=== PATIENT | female | born 1965 ===

== ENCOUNTER 2018-02-12 16:05 | Emergency (ER) | payer MEDICAID, OTHER ==
--- NOTE | 2018-02-12 16:50 | ED PDOC ---
HPI: Back Time Seen by Provider: 02/12/18 16:23 Chief Complaint (Nursing): Back Pain Chief Complaint (Provider): Right Flank Pain History Per: Patient History/Exam Limitations: no limitations Onset/Duration Of Symptoms: Days (1x), Worse Since Current Symptoms Are (Timing): Constant Quality Of Discomfort: Sharp Exacerbating Factor(s): Movement Additional Complaint(s): 52 year old female with a history of back pain presents to the ED for an evaluation of right flank pain onset yesterday. Patient states the pain is int ermittent and today afternoon it worsened becoming sharp and uncomfortable. She states the pain is worse with movement and she visited her orthopedic doctor yesterday who prescribed non-steriod medication without any relief. Patient takes Ibuprofen and the back pain goes away. Otherwise, patient denies fever, vomiting, urinary problems, leg problems, numbness, weakness, diarrhea, constipation or rash. PMD: non [facility] Provider Past Medical History Reviewed: Historical Data, Nursing Documentation, Vital Signs Vital Signs: Last Vital Signs Temp 98 F 02/12/18 16:15 Pulse 80 02/12/18 16:15 Resp 18 02/12/18 16:15 BP 127/85 02/12/18 16:15 Pulse Ox 99 02/12/18 16:15 - Medical History PMH: Back Problems, Hypothyroidism - Surgical History Surgical History: Other surgeries: Thyroid surgery - Family History Family History: States: Unknown Family Hx - Social History Current smoker - smoking cessation education provided: No Alcohol: None Drugs: Denies - Immunization History Hx Tetanus Toxoid Vaccination: No Hx Influenza Vaccination: No Hx Pneumococcal Vaccination: No - Home Medications Home Medications: Ambulatory Orders Medication Instructions Recorded Levothyroxine [Synthroid] 100 mcg PO DAILY 12/31/16 Naproxen [Naprosyn] 1 tab PO BID PRN #20 tab 01/30/18 Cyclobenzaprine [Cyclobenzaprine 10 mg PO TID #15 tab 02/12/18 HCl] - Allergies Allergies/Adverse Reactions: Allergies Allergy/AdvReac Type Severity Reaction Status Date / Time fruits Allergy Unknown ITCHING Uncoded 02/12/18 16:14 Review of Systems ROS Statement: Except As Marked, All Systems Reviewed And Found Negative Constitutional: Negative for: Fever, Chills Gastrointestinal: Negative for: Nausea, Vomiting, Abdominal Pain, Diarrhea, Constipation Genitourinary Female: Negative for: Dysuria, Frequency, Incontinence, Hematuria Musculoskeletal: Positive for: Back Pain. Negative for: Leg Pain Neurological: Negative for: Weakness, Numbness Physical Exam - Reviewed Nursing Documentation Reviewed: Yes Vital Signs Reviewed: Yes - Physical Exam Appears: Positive for: Non-toxic, No Acute Distress Head Exam: Positive for: ATRAUMATIC, NORMAL INSPECTION, NORMOCEPHALIC Skin: Positive for: Normal Color, Warm, Dry. Negative for: Rash Eye Exam: Positive for: EOMI, Normal appearance, PERRL ENT: Positive for: Normal ENT Inspection Neck: Positive for: Normal, Painless ROM, Supple. Negative for: Decreased ROM Cardiovascular/Chest: Positive for: Regular Rate, Rhythm. Negative for: Murmur Respiratory: Positive for: Normal Breath Sounds. Negative for: Decreased Breath Sounds, Wheezing, Respiratory Distress Gastrointestinal/Abdominal: Positive for: Normal Exam, Soft. Negative for: Tenderness, Guarding, Rebound Back: Positive for: Other (tenderness on the right midback and moving positions when uncomfortable). Negative for: L CVA Tenderness, R CVA Tenderness Extremity: Positive for: Normal ROM. Negative for: Tenderness, Pedal Edema, Deformity Neurologic/Psych: Positive for: Alert, Oriented (x3). Negative for: Amanda r/Sensory Deficits - Laboratory Results Result Diagrams: 02/12/18 16:56 02/12/18 16:56 - ECG O2 Sat by Pulse Oximetry: 99 (RA) Pulse Ox Interpretation: Normal - Progress Re-evaluation Time: 18:30 Condition: Re-examined, Improved Medical Decision Making Medical Decision Making: Time: 1636 Initial Impression: right flank pain Differential Diagnosis: nephrolithiasis, muscle spasm or musculoskeletal pain Initial Plan: Abdomen & Pelvis CT BMP Ed Urine CBC w/ Differential Flexeril 10mg Toradol 30mg Urinalysis Reevaluation Time: 1733 CT RESULTS FINDINGS: There is limited evaluation of the solid organs without the administration of IV contrast. LOWER THORAX: No visible consolidation, pleural effusion, or pneumothorax. LIVER: Unremarkable unenhanced appearance. GALLBLADDER AND BILE DUCTS: Unremarkable unenhanced appearance. PANCREAS: Unremarkable unenhanced appearance. SPLEEN: 1.5 cm probable splenule. Otherwise unremarkable unenhanced appearance. ADRENALS: Unremarkable unenhanced appearance. KIDNEYS AND URETERS: No hydronephrosis or obstructing renal calculus. BLADDER: The urinary bladder appears unremarkable. REPRODUCTIVE: Uterus is not identified presumably due to hysterectomy. APPENDIX: The appendix appears within normal limits of caliber. No secondary signs of acute appendicitis. BOWEL: The stomach is nondistended. Lack of oral contrast limits evaluation for bowel pathology. The bowel loops appear within normal limits of caliber without evidence of intestinal obstruction. Short segment of wall thickening/luminal narrowing the rectosigmoi d junction measuring approximately 3.1 cm in length; while this may be exaggerated by under distension, malignant neoplasm must be excluded. Recommend correlation with sigmoidoscopy/colonoscopy. PERITONEUM: No significant free fluid. No definite free air. LYMPH NODES: No bulky lymphadenopathy identified. VASCULATURE: No aortic atherosclerotic calcifications identified. No aortic aneurysm. BONES: Degenerative changes. OTHER FINDINGS: None. IMPRESSION: Short segment of wall thickening/luminal narrowing the rectosigmoid junction measuring approximately 3.1 cm in length; while this may be exaggerated by under distension, malignant neoplasm must be excluded. Recommend correlation with sigmoidoscopy/colonoscopy. Scribe Attestation: Documented by Guerita Bajwa, acting as a scribe for Felicita Ray MD Provider Scribe Attestation: All medical record entries made by the Scribe were at my direction and personally dictated by me. I have reviewed the chart and agree that the record accurately reflects my personal performance of the history, physical exam, medical decision making, and the department course for this patient. I have also personally directed, reviewed, and agree with the discharge instructions and disposition. Disposition - Clinical Impression Clinical Impression: Flank pain, Abnormal CT scan, colon - Patient ED Disposition Is Patient to be Admitted: No Doctor Will See Patient In The: Office Counseled Patient/Family Regarding: Studies Performed, Diagnosis, Need For Followup - Disposition Referrals: Wilmar Hernandez MD [Staff Provider] - Disposition: Routine/Home Disposition Time: 18:34 Condition: GOOD Additional Instructions: DAILY STILES, thank you for letting us take care of you today. Your provider was Felicita Ray MD and you were treated for RT ABD PAIN. The emergency medical care you received today was directed at your acute symptoms. If you were prescribed any medication, please fill it and take as directed. It may take several days for your symptoms to resolve. Return to the Emergency Department if your symptoms worsen, do not improve, or if you have any other problems. Please contact your doctor or call one of the physicians/clinics you have been referred to that are listed on the Patient Visit Information form that is included in your discharge packet. Bring any paperwork you were given at discharge with you along with any medications you are taking to your follow up visit. Our treatment cannot replace ongoing medical care by a primary care provider outside of the emergency department. Thank you for allowing the [facility] team to be part of your care today. If you had an X-Ray or CT scan: A Radiologist will review the ED reading if any change in treatment is needed we will contact you. If you had a blood, urine, or wound culture: It will take several days for the results, if any change in treatment is needed we will contact you. If you had an STI test: It will take 48 hours for the results. Please call after 1 week if you have not heard back. Prescriptions: Cyclobenzaprine [Cyclobenzaprine HCl] 10 mg PO TID #15 tab Instructions: Flank Pain (DC), Colon and Rectal Cancer Screening Print Language: KYRGYZ
[2018-02-12 17:06] LABS: BASO # 0.1 K/uL (0.0-0.2); BASO % 0.9 % (0.0-2.0); EOS # 0.2 K/uL (0.0-0.7); EOS % 2.9 % (0.0-4.0); HEMOGLOBIN 12.4 g/dL (12.0-16.0); LYMPH # 1.4 K/uL (1.0-4.3); LYMPH % 19.6 % (20.0-40.0); MEAN CELL VOLUME 90.1 fl (81.0-99.0); MEAN CORPUSCULAR HEMOGLOBIN 29.9 pg (27.0-31.0); MEAN CORPUSCULAR HGB CONC 33.1 g/dL (33.0-37.0); MEAN PLATELET VOLUME 7.7 fl (7.2-11.7); MONO # 0.5 K/uL (0.0-0.8); MONO % 6.8 % (0.0-10.0); NEUT # 5.1 K/uL (1.8-7.0); NEUT % 69.8 % (50.0-75.0); NRBC % 0.1 % (0.0-0.0); RBC 4.17 Mil/uL (3.80-5.20); RED CELL DISTRIBUTION WIDTH 14.2 % (11.5-14.5); WHITE BLOOD COUNT 7.3 K/uL (4.8-10.8)
[2018-02-12 17:09] LABS: BLOOD UREA NITROGEN 17 mg/dl (7-17); GFR NON-AFRICAN AMERICAN > 60
[2018-02-12 17:19] LABS: SQUAMOUS EPITHIAL 3 /hpf (0-5); URINE BILIRUBIN NEGATIVE (NEGATIVE); URINE BLOOD NEGATIVE (NEGATIVE); URINE CLARITY CLEAR (Clear); URINE COLOR YELLOW (YELLOW); URINE GLUCOSE (UA) NEG (NEGATIVE); URINE LEUKOCYTE ESTERASE NEG Leu/uL (Negative); URINE PROTEIN NEGATIVE (NEGATIVE); URINE UROBILINOGEN 0.2-1.0 mg/dL (0.2-1.0)
--- NOTE | 2018-02-12 17:36 | CT ---
PROCEDURE: CT Abdomen and Pelvis without Oral or IV contrast. HISTORY: right flank pain COMPARISON: None available. TECHNIQUE: Contiguous axial images of the abdomen and pelvis. No oral or IV contrast administered. Coronal and Sagittal reformats generated and reviewed. Radiation dose: Total exam DLP = 787.59 mGy-cm. This CT exam was performed using one or more of the following dose reduction techniques: Automated exposure control, adjustment of the mA and/or kV according to patient size, and/or use of iterative reconstruction technique. FINDINGS: There is limited evaluation of the solid organs without the administration of IV contrast. LOWER THORAX: No visible consolidation, pleural effusion, or pneumothorax. LIVER: Unremarkable unenhanced appearance. GALLBLADDER AND BILE DUCTS: Unremarkable unenhanced appearance. PANCREAS: Unremarkable unenhanced appearance. SPLEEN: 1.5 cm probable splenule. Otherwise unremarkable unenhanced appearance. ADRENALS: Unremarkable unenhanced appearance. KIDNEYS AND URETERS: No hydronephrosis or obstructing renal calculus. BLADDER: The urinary bladder appears unremarkable. REPRODUCTIVE: Uterus is not identified presumably due to hysterectomy. APPENDIX: The appendix appears within normal limits of caliber. No secondary signs of acute appendicitis. BOWEL: The stomach is nondistended. Lack of oral contrast limits evaluation for bowel pathology. The bowel loops appear within normal limits of caliber without evidence of intestinal obstruction. Short segment of wall thickening/luminal narrowing the rectosigmoid junction measuring approximately 3.1 cm in length; while this may be exaggerated by under distension, malignant neoplasm must be excluded. Recommend correlation with sigmoidoscopy/colonoscopy. PERITONEUM: No significant free fluid. No definite free air. LYMPH NODES: No bulky lymphadenopathy identified. VASCULATURE: No aortic atherosclerotic calcifications identified. No aortic aneurysm. BONES: Degenerative changes. OTHER FINDINGS: None. IMPRESSION: Short segment of wall thickening/luminal narrowing the rectosigmoid junction measuring approximately 3.1 cm in length; while this may be exaggerated by under distension, malignant neoplasm must be excluded. Recommend correlation with sigmoidoscopy/colonoscopy.
[2018-02-12 18:46] VITALS: BP 126/78; PULSE 78; RESP 19; TEMP 97.5; O2SAT 98
== END 2018-02-12 18:48 | disposition home or self-care (01) ==
LOC: H.ER 16:05
DX: R10.9 Unspecified abdominal pain (principal); E03.9 Hypothyroidism, unspecified; R94.8 Abnormal results of function studies of other organs and systems
CPT/HCPCS: 74176; 80048; 81003; 85025; 96374; 99282; J1885

== ENCOUNTER 2018-05-27 16:44 | Emergency (ER) | payer MEDICAID, OTHER ==
[2018-05-27 17:01] VITALS: O2SAT 99
[2018-05-27] MEDS ORDERED: Sodium Chloride 0.9% 500 ML IV STA (17:34)
[2018-05-27 17:50] LABS: BASO % 0.5 % (0.0-2.0); EOS # 0.1 K/uL (0.0-0.7); EOS % 2.1 % (0.0-4.0); HEMOGLOBIN 12.8 g/dL (12.0-16.0); LYMPH # 1.2 K/uL (1.0-4.3); LYMPH % 24.4 % (20.0-40.0); MEAN CELL VOLUME 87.7 fl (81.0-99.0); MEAN CORPUSCULAR HEMOGLOBIN 29.7 pg (27.0-31.0); MEAN CORPUSCULAR HGB CONC 33.8 g/dL (33.0-37.0); MEAN PLATELET VOLUME 7.7 fl (7.2-11.7); MONO # 0.9 K/uL (0.0-0.8); MONO % 17.1 % (0.0-10.0); NEUT # 2.9 K/uL (1.8-7.0); NEUT % 55.9 % (50.0-75.0); NRBC % 0.1 % (0.0-0.0); RBC 4.31 Mil/uL (3.80-5.20); RED CELL DISTRIBUTION WIDTH 13.7 % (11.5-14.5); WHITE BLOOD COUNT 5.1 K/uL (4.8-10.8)
[2018-05-27 17:58] LABS: ALBUMIN 4.3 g/dL (3.5-5.0); ALT/SGPT 32 U/L (9-52); AST/SGOT 31 U/L (14-36); BLOOD UREA NITROGEN 18 mg/dl (7-17); CALCIUM 9.6 mg/dL (8.4-10.2); GFR NON-AFRICAN AMERICAN > 60
--- NOTE | 2018-05-27 17:58 | CT ---
Date of service: 05/27/2018 PROCEDURE: CT HEAD WITHOUT CONTRAST. HISTORY: severe headache COMPARISON: None available. TECHNIQUE: Axial computed tomography images were obtained through the head/brain without intravenous contrast. Radiation dose: Total exam DLP = 745.74 mGy-cm. This CT exam was performed using one or more of the following dose reduction techniques: Automated exposure control, adjustment of the mA and/or kV according to patient size, and/or use of iterative reconstruction technique. FINDINGS: HEMORRHAGE: No intracranial hemorrhage. BRAIN: Cabrera-white matter differentiation is preserved. There is no mass, mass effect or abnormal extra-axial fluid collection. There is no territorial infarction. The midline sagittal structures are normal. VENTRICLES: The ventricles are normal in size, shape and configuration. CALVARIUM: There is no calvarial fracture or extracranial soft tissue swelling. PARANASAL SINUSES: There fluid in the left maxillary sinus and ethmoid air cells with aerosolized secretions. The remaining included paranasal sinuses are clear. MASTOID AIR CELLS: Predominantly clear. OTHER FINDINGS: None. IMPRESSION: No acute intracranial abnormality. Fluid with aerosolized secretions in the left maxillary sinus and ethmoid air cells may represent acute sinusitis in the appropriate clinical setting. Clinical follow-up is advised.
[2018-05-27] MEDS ORDERED: Potassium Chloride 20 mEq ER Tab PO STA (18:45)
[2018-05-27] MEDS ORDERED: Potassium Chloride 20 mEq ER Tab PO ONE (18:52)
--- NOTE | 2018-05-27 19:44 | ED PDOC ---
HPI: Headache Time Seen by Provider: 05/27/18 17:21 Chief Complaint (Nursing): Headache Chief Complaint (Provider): HEADACHE History Per: Patient History/Exam Limitations: no limitations Onset/Duration Of Symptoms: Days Current Symptoms Are (Timing): Still Present Severity: Moderate Pain Scale Rating Of: 7 Quality: Aching, Pressure Preceeding Symptoms: None Associated Symptoms: denies: Photophobia, Blurred Vision, Nausea, Vomiting, Extremity Weakness Additional History Per: Patient Additional Complaint(s): 52 Y/O FEMALE WITH A HX OF HTN, PRESENTS TO THE ED C/O FRONTAL HEADACHE, NASAL CONGESTION, UPPER BACK PAIN FOR TWO DAYS. PT REPORTS SHE WOKE UP WITH HEADACHE TWO DAYS AGO AND HAS BEEN TAKING OTC MEDS WITH NO RELIEF. SHE ALSO STATES SHE HAS NEVER FELT THIS TYPE OF HEADACHE IN THE PAST. SHE DENIES SOB, CP, FEVER, COUGH. Past Medical History Reviewed: Historical Data, Nursing Documentation, Vital Signs Vital Signs: Last Vital Signs Temp 98.3 F 05/27/18 16:58 Pulse 74 05/27/18 16:58 Resp 16 05/27/18 16:58 BP 171/90 H 05/27/18 16:58 Pulse Ox 99 05/27/18 16:58 - Medical History PMH: Back Problems, Hypothyroidism - Surgical History Surgical History: - Family History Family History: States: Unknown Family Hx - Living Arrangements Living Arrangements: With Family - Social History Alcohol: None Drugs: Denies - Immunization History Hx Tetanus Toxoid Vaccination: No Hx Influenza Vaccination: No Hx Pneumococcal Vaccination: No - Home Medications Home Medications: Ambulatory Orders Medication Instructions Recorded Levothyroxine [Synthroid] 100 mcg PO DAILY 12/31/16 Naproxen [Naprosyn] 1 tab PO BID PRN #20 tab 01/30/18 Cyclobenzaprine [Cyclobenzaprine 10 mg PO TID #15 tab 02/12/18 HCl] Fluticasone Propionate [Flonase 1 - 2 spry NS BID PRN #1 bottle 05/27/18 Allergy Relief] - Allergies Allergies/Adverse Reactions: Allergies Allergy/AdvReac Type Severity Reaction Status Date / Time banana Allergy ITCHING Verified 05/27/18 16:58 fruits Allergy Unknown ITCHING Uncoded 05/27/18 16:58 Review of Systems ROS Statement: Except As Marked, All Systems Reviewed And Found Negative Constitutional: Negative for: Fever, Chills, Weakness Eyes: Negative for: Vision Change ENT: Negative for: Throat Pain, Throat Swelling Cardiovascular: Negative for: Chest Pain, Palpitations Respiratory: Negative for: Cough, Shortness of Breath, SOB with Exertion, Wheezing Gastrointestinal: Negative for: Nausea, Vomiting, Abdominal Pain Musculoskeletal: Positive for: Neck Pain, Back Pain Skin: Negative for: Rash Neurological: Negative for: Weakness Physical Exam - Reviewed Nursing Documentation Reviewed: Yes Vital Signs Reviewed: Yes - Physical Exam Appears: Positive for: Well, Non-toxic, No Acute Distress Head Exam: Positive for: ATRAUMATIC, NORMAL INSPECTION, NORMOCEPHALIC Skin: Positive for: Normal Color, Warm, DRY Eye Exam: Positive for: Normal appearance, EOMI, PERRL, Periorbital tenderness. Negative for: Nystagmus, Periorbital swelling, Conjunctival injection ENT: Positive for: Normal ENT Inspection, TM Is/Are (INTACT). Negative for: Pharyngeal Erythema Neck: Positive for: Normal, Painless ROM, Supple Cardiovascular/Chest: Positive for: Regular Rate, Rhythm, Chest Non Tender Respiratory: Positive for: Normal Breath Sounds. Negative for: Decreased Breath Sounds, Accessory Muscle Use, Crackles, Rales, Rhonchi, Respiratory Distress Pulses-Radial (L): 2+ Pulses-Radial (R): 2+ Gastrointestinal/Abdominal: Positive for: Normal Exam, Bowel Sounds, Soft. Negative for: Tenderness Back: Positive for: Normal Inspection. Negative for: L CVA Tenderness, R CVA Tenderness Extremity: Positive for: Normal ROM Neurological/Psych: Positive for: Awake, Alert, Normal Tone, Symmetric/Intact Strength, Oriented, chairman ceo II-XII (INTACT) - Laboratory Results Result Diagrams: 05/27/18 17:39 05/27/18 17:39 Lab Results: Total Bilirubin 0.3 mg/dl (0.2-1.3) 05/27/18 17:39 AST 31 U/L (14-36) 05/27/18 17:39 ALT 32 U/L (9-52) 05/27/18 17:39 Alkaline Phosphatase 89 U/L (38-126) 05/27/18 17:39 Total Protein 8.4 G/DL (6.3-8.2) H 05/27/18 17:39 Albumin 4.3 g/dL (3.5-5.0) 05/27/18 17:39 Globulin 4.1 gm/dL (2.2-3.9) H 05/27/18 17:39 Albumin/Globulin Ratio 1.0 (1.0-2.1) 05/27/18 17:39 - ECG ECG Rhythm: Positive for: Normal QRS Interpretation Of ECG: SEEN AND EVALUATED BY DR. LUTZ Rate: 67 O2 Sat by Pulse Oximetry: 99 Pulse Ox Interpretation: Normal Medical Decision Making Medical Decision Making: CBC CMP 0.9 NS 500CC REGLAN 10MG IV TORADOL 15MG IV CT HEAD 19:30: LABS REVIEWED BY ME K+: 3.3, KDUR 20MEQ PO X 1 GIVEN, PT TAKING HCTZ FOR BP CT HEAD READ BY RADIOLOGIST: ACUTE SINUSITIS, CORRELATES WITH NASAL CONGESTION AND FACIAL PRESSURE ON EXAM --REPEAT VS: TEMP: 98.5 HR:62 B/P:137/72 O2SAT: 99% RM AIR CLINICAL FINDINGS DISCUSSED WITH PATIENT. NO FURTHER WORK NEEDED IN ED AT THIS TIME. FOLLOW-UP WITH PMD. RX GIVEN FOR FLONASE. PATIENT STATES HEADACHE AND BACK PAIN HAS IMPROVED. PATIENT STABLE FOR D/C. PATIENT AGREES WITH PLAN. GIVEN RETURN TO ED PRECAUTIONS. Disposition - Clinical Impression Clinical Impression: Acute sinusitis, Sinus headache - Patient ED Disposition Is Patient to be Admitted: No Counseled Patient/Family Regarding: Diagnosis, Need For Followup, Rx Given - Disposition Disposition: Routine/Home Disposition Time: 19:30 Condition: IMPROVED Additional Instructions: FOLLOW-UP WITH PMD IN 1-2 WEEKS Prescriptions: Fluticasone Propionate [Flonase Allergy Relief] 1 - 2 spry NS BID PRN #1 bottle PRN Reason: Sinus Symptoms Instructions: Sinusitis in Adults, Sinus Headache (DC) Forms: [employer] (Citizen [place]) Print Language: INDONESIAN - POA Present On Arrival: None
[2018-05-27 19:58] VITALS: BP 137/72; RESP 18; TEMP 98.5
[2018-05-27 21:01] VITALS: PULSE 67
== END 2018-05-27 19:58 | disposition home or self-care (01) ==
LOC: H.ER 16:44
DX: R51 Headache (principal); J01.90 Acute sinusitis, unspecified; E03.9 Hypothyroidism, unspecified
CPT/HCPCS: 70450; 80053; 85025; 96361; 96374; 96375; 99285; J1885; J2765; J7040